=== PATIENT | female | born 1950 | race Caucasian/White ===

== ENCOUNTER 2023-11-09 06:03 | Day surgery (SDC) | payer SELFPAY ==
[2023-11-02 12:24] VITALS: BMI 26.9
[2023-11-09] MEDS ORDERED: BACITRACIN/POLYMYXIN OPH OINT 3.5 GM TUBE ONE (07:21)
[2023-11-09] MEDS ORDERED: BUPIVACAINE HCL/EPINEPHRINE/PF 30 ML VIAL IJ ONE (07:21)
[2023-11-09] MEDS ORDERED: GUM MASTIC/STORAX/MSAL/ALCOHOL 1 DRP DROPSBTL MC ONE (07:22)
[2023-11-09] MEDS ORDERED: BSS (NA/CA/MG/K) BALANCED SALT SOLUTION OPHTH SOLN 15 ML BOTTLE ONE (07:22)
[2023-11-09] MEDS ORDERED: POVIDONE-IODINE 5% OPHTHALMIC PREP 30 ML SOLUTION ONE (07:22)
[2023-11-09] MEDS ORDERED: MIDAZOLAM HCL 2 MG/2 ML SINGLE DOSE VIAL ONE (07:41)
[2023-11-09] MEDS ORDERED: PROPOFOL 40 ML ONE (07:42)
[2023-11-09] MEDS ORDERED: DEXAMETHASONE SOD PHOSPHATE 4 MG/1 ML VIAL ONE (07:44)
[2023-11-09] MEDS ORDERED: ONDANSETRON 4 MG/2 ML VIAL ONE ×2 (07:44→09:12)
[2023-11-09] MEDS ORDERED: SUCCINYLCHOLINE CHLORIDE 200 MG/10 ML SYRINGE ONE (07:44)
[2023-11-09] MEDS ORDERED: LIDOCAINE HCL/PF 2% SDV 5ML VIAL ONE (07:44)
[2023-11-09] MEDS ORDERED: CLINDAMYCIN 600MG PREMIX IVPB 600 MG/50 ML BAG IVPB ONE (07:46)
[2023-11-09] MEDS ORDERED: GLYCOPYRROLATE 0.2 MG/1 ML VIAL ONE (07:46)
[2023-11-09] MEDS: BUPIVACAINE 0.25% /EPI 1:200,000 10 ML VIAL NR ONE (08:12)
[2023-11-09] MEDS ORDERED: TRIAMCINOLONE ACET 40MG/1ML VIAL ONE (08:31)
[2023-11-09] MEDS: TRIAMCINOLONE ACET 40MG/1ML VIAL IM ONE (10:31)
[2023-11-09] MEDS ORDERED: oxyCODONE HCL 5 MG TABLET PO PRN (10:50)
[2023-11-09] MEDS ORDERED: LACTATED RINGERS SOLUTION 1,000 ML IV SCH (11:00)
[2023-11-09] MEDS: ONDANSETRON 4 MG/2 ML VIAL IVPUSH PRN (11:00)
[2023-11-09] MEDS ORDERED: PROMETHAZINE HCL 25 MG/1 ML VIAL ONE (11:10)
[2023-11-09] MEDS: PROMETHAZINE HCL 25 MG/1 ML VIAL IVPB ONE (11:30)
[2023-11-09 13:43] VITALS: RESP 16
[2023-11-09] MEDS: ACETAMINOPHEN 1000 MG/100 ML BAG IVPB ONE (13:45)
[2023-11-09 15:20] VITALS: BP 153/90; PULSE 84
[2023-11-09 16:11] VITALS: TEMP 98.1
== END 2023-11-09 16:00 | disposition home or self-care (01) ==
LOC: FASU 06:03
PROVIDERS: ATTEND Plastic Surgery
PROC: 080N0ZZ Alteration of Right Upper Eyelid, Open Approach (ICD-10-PCS; 2023-11-09)
PROC: 080R0ZZ Alteration of Left Lower Eyelid, Open Approach (ICD-10-PCS; 2023-11-09)
PROC: 080Q0ZZ Alteration of Right Lower Eyelid, Open Approach (ICD-10-PCS; 2023-11-09)
PROC: 080P0ZZ Alteration of Left Upper Eyelid, Open Approach (ICD-10-PCS; principal; 2023-11-09 08:23)
DX: H02.835 Dermatochalasis of left lower eyelid (principal); H02.834 Dermatochalasis of left upper eyelid; H02.831 Dermatochalasis of right upper eyelid; H02.832 Dermatochalasis of right lower eyelid; H02.89 Other specified disorders of eyelid
CPT/HCPCS: 82962; 94760; J0131